=== PATIENT | female | born 1980 | race Caucasian/White ===

== ENCOUNTER → 2020-10-06 | Outpatient (CLI) | payer BC ==
[2020-10-06 16:18] LABS: Basophils # (A) 0.1 k/uL (0-0.2); Basophils % (A) 2 %; Eosinophils # (A) 0.1 k/uL (0-0.7); Eosinophils % (A) 2 %; HGB 11.2 gm/dL (11.4-16.0); Hypochromasia Slight; Lymphocytes # (A) 1.8 k/uL (1.0-4.8); Lymphocytes % (A) 32 %; MCH 27.5 pg (25.0-35.0); MCV 83.2 fL (80.0-100.0); Mean Platelet Volume 8.9; Monocytes # (A) 0.5 k/uL (0-1.0); Monocytes % (A) 9 %; Neutrophils % (A) 53 %; Platelet Count 299 k/uL (150-450); RBC 4.09 m/uL (3.80-5.40); RDW 15.2 % (11.5-15.5); WBC 5.7 k/uL (3.8-10.6)
== END | disposition home or self-care (01) ==
LOC: LABPAT 16:06
PROVIDERS: ATTEND Obstetrics & Gynecology
DX: Z01.812 Encounter for preprocedural laboratory examination (principal); N92.0 Excessive and frequent menstruation with regular cycle; N94.6 Dysmenorrhea, unspecified
CPT/HCPCS: 36415; 85025

== ENCOUNTER 2020-10-10 07:25 | Day surgery (SDC) | payer BC ==
[2020-10-06 09:51] VITALS: BMI 25.8
--- NOTE | 2020-10-06 20:36 | HP ---
HISTORY AND PHYSICAL REASON FOR ADMISSION: Surgery scheduled on October 10. HISTORY OF PRESENT ILLNESS: The patient is a 39-year-old, 3, para 3-0-0-3, who presents to the office with complaints of significantly heavy bleeding with clots and also significant cramping. This has been increasing over a number of years and use of Anaprox and Lysteda have been ineffective. Her does have a vasectomy and she is not interested in hormonal manipulation or contraceptive choices to manage the problem and has specifically requested diagnostic hysteroscopy with NovaSure endometrial ablation. PAST MEDICAL HISTORY: None. PAST SURGICAL HISTORY: Significant for breast augmentation surgery and tummy tuck both in 2013. There were no anesthetic concerns. OBSTETRICAL HISTORY: 3, para 3-0-0-3 with 3 term vaginal deliveries without complications. Method of contraception is vasectomy. GYNECOLOGIC HISTORY: Unremarkable with no history of any infections to include STDs. FAMILY HISTORY: Noncontributory. SOCIAL HISTORY: The patient is and works as an investment sales assistant in [employer]. She is a nonsmoker. Reports occasional alcohol. No other social concerns. CURRENT MEDICATIONS: Include Lysteda 650 mg 2 tablets 2 times a day as needed during menses. Additionally, she has used Anaprox DS every 8 hours as needed for dysmenorrhea. REVIEW OF SYSTEMS: Confined to history of present illness. PHYSICAL EXAMINATION: Vital signs are stable. The patient is afebrile. In GENERAL, this is a well-developed, well-nourished white female in no acute distress. Her HEART has a regular rhythm and rate without murmur. Her LUNGS are clear to auscultation bilaterally in all tam. Her ABDOMEN is nondistended, has normoactive bowel sounds, soft, nontender, without any palpable masses, hepatosplenomegaly, or hernias. Her EXTREMITIES without any cyanosis, clubbing, or edema and nontender to palpation bilaterally. PELVIC examination demonstrates normal external genitalia and BUS with normal vaginal mucosa and cervix. There is no cervical motion tenderness. Uterus is 4-5 weeks in size, mid plane, mobile, nontender, normal in shape. An endometrial biopsy performed during the examination demonstrated benign findings. Sounded to approximately 8 cm. The adnexa are normal, nontender without mass bilaterally. ASSESSMENT AND PLAN: Menorrhagia. Dysmenorrhea is almost certainly secondary to degree of heavy bleeding. After discussion of options for treatment, the patient has again expressed desire to proceed with diagnostic hysteroscopy with NovaSure endometrial ablation. The risks and complications of the procedure have been thoroughly discussed including risk for bleeding, bleeding requiring transfusion, infection, injury to local structures to specifically include uterine perforation, Asherman syndrome, and potential hematometra. She understood all this and has agreed to proceed. MMODL / IJN: [id number] /
[~2020-10-10 07:25] MED LIST: Pre Op ABX Message 1 EACH MISC MISCELLANE ONE
[2020-10-10] MEDS: LACTATED RINGERS 1,000 ML IV SCH ×3 (07:57→10:45)
[2020-10-10] MEDS ORDERED: ONDANSETRON 4 MG/2 ML VIAL ONE (07:59)
[2020-10-10] MEDS ORDERED: LIDOCAINE 1% (10MG/ML) FOR IV START INTRADERMA ONE (08:01)
[2020-10-10] MEDS ORDERED: DEXAMETHASONE SOD PHOSPHATE 4 MG/ML 1 ML VIAL IVP ONE (08:02)
[2020-10-10] MEDS ORDERED: ONDANSETRON 4 MG/2 ML VIAL IVP ONE (08:02)
[2020-10-10] MEDS ORDERED: SCOPOLAMINE 1.5MG/72HR PATCH TRANSDERM ONE (08:03)
[2020-10-10] MEDS ORDERED: PROPOFOL 10 MG/ML 20 ML VIAL IV ONE (08:35)
[2020-10-10] MEDS ORDERED: KETOROLAC 15 MG/ML 1 ML VIAL ONE (08:35)
[2020-10-10] MEDS ORDERED: fentaNYL (PF) 50 MCG/ML 2 ML AMP ONE (08:35)
[2020-10-10] MEDS ORDERED: LIDOCAINE 1% INJ 10MG/ML (20 ML MDV) ONE (08:35)
[2020-10-10] MEDS ORDERED: MIDAZOLAM 2 MG/2 ML VIAL ONE (08:35)
[2020-10-10] MEDS ORDERED: SIMETHICONE 80 MG CHEWABLE PO PRN (09:12)
[2020-10-10] MEDS ORDERED: diphenhydrAMINE 50 MG/ML 1 ML VIAL IVP PRN (09:12)
[2020-10-10] MEDS ORDERED: Acetaminophen-Codeine 300-30mg TAB PO PRN ×2 (09:12)
[2020-10-10] MEDS ORDERED: KETOROLAC 15 MG/ML 1 ML VIAL IVP PRN (09:12)
[2020-10-10] MEDS ORDERED: ONDANSETRON 4 MG/2 ML VIAL IVP PRN (09:12)
[2020-10-10] MEDS ORDERED: METOCLOPRAMIDE 5 MG/ML 2 ML VIAL IVP PRN (09:12)
[2020-10-10] MEDS ORDERED: IBUPROFEN 600 MG TAB PO PRN (09:12)
[2020-10-10] MEDS ORDERED: LACTATED RINGERS 1,000 ML IV SCH (09:15)
[2020-10-10 09:19] VITALS: TEMP 96.8
--- NOTE | 2020-10-10 09:21 | P.OP ---
Date of Procedure: 10/10/20 Preoperative Diagnosis: #1. Menorrhagia #2. Dysmenorrhea Postoperative Diagnosis: Same Procedure(s) Performed: #1. Diagnostic hysteroscopy #2. NovaSure endometrial ablation Anesthesia: other (Gen. by LMA) Surgeon: Luiz Poole Estimated Blood Loss (ml): 2 Urine output (ml): 50 Pathology: none sent Condition: stable Disposition: PACU Operative Findings: Preoperative pelvic examination demonstrated a roughly 6 week midplane to slightly retroverted mobile normal shaped uterus with normal adnexa bilaterally. Intraoperatively, the uterus sounded to 10 cm while the cervix sounded to 4 cm. Using the hysteroscope, the bilateral tubal ostia were seen and there was only scattered areas of shaggy endometrium with no other evidence of any kind of pathology. The settings for the NovaSure tool were a length of 6.0 cm, a width of 4.8 cm for a total power of 158 W. After total run time of 81 seconds, the base unit read "procedure complete." The postprocedural results using the hysteroscope appeared to be excellent. The patient, should she require hysterectomy in the future, would best be served with a da Fercho approach, she is a borderline candidate for vaginal approach at best. Description of Procedure: The patient was prepped and draped in usual fashion after general anesthesia was administered by the anesthesiologist. A weighted speculum was placed in the bladder draining approximately 50 mL of clear elysia urine. The anterior lip of the cervix was grasped with a single-tooth tenaculum and uterus sounded to 10 cm with a cervical length of 4 cm. Serial dilation was carried out to admit the diagnostic hysteroscope which was placed into the endometrial cavity and the cavity distended with normal saline. The findings are as noted above with no evidence of any pathology and only occasional shaggy endometrium noted. The bilateral tubal ostia were seen. After adequate hysteroscopy been performed, the scope was set aside and the NovaSure tool placed into the cavity with settings of a length of 6.0 cm, a width of 4.8 cm for total power 158 W. The 2 was opened and seated well. The cavity check was attempted and passed without difficulty. The tool was enabled and the run was started. After a total run time of 81 seconds, the base unit read "procedure complete." The 2 was closed, removed, and discarded and the diagnostic scope replaced into the endometrial cavity. The findings appeared to be excellent. The scope was then removed and discarded and all instrumentation removed. There was no ongoing bleeding either from the cervix or from the tenaculum site. Estimated blood loss for the entire case was approximately 2 mL. There were no complications. All sponge, instrument, and needle counts were correct. The patient tolerated the procedure well and proceeded to the recovery room in stable condition.
[2020-10-10 09:27] VITALS: RESP 16
[2020-10-10 10:24] VITALS: BP 1101/64; PULSE 64
[2020-10-10] MEDS ORDERED: METOCLOPRAMIDE 5 MG/ML 2 ML VIAL IVP ONE (10:30)
== END 2020-10-10 11:03 | disposition home or self-care (01) ==
LOC: OR 07:25
PROVIDERS: ATTEND Obstetrics & Gynecology
DX: N92.0 Excessive and frequent menstruation with regular cycle (principal); N94.6 Dysmenorrhea, unspecified
CPT/HCPCS: 81025; 58563; J2250; J1100; J2765; J2405; J2001; J3010; J1885; J2704

== ENCOUNTER → 2022-02-16 | Outpatient (CLI) | payer BC ==
--- NOTE | 2022-02-19 11:40 | MM ---
Reason for Exam: Hx of breast augmentation, asymptomatic. Baseline mammogram. Patient History: Menarche at age 10. First Full-Term at age 24. 2013, Bilateral Implants. Last menstrual period: 01/20/2022 Risk Values: Dina 5 year model risk: 0.6%. NCI Lifetime model risk: 9.8%. Prior Study Comparison: Patient's first Mammogram. Tissue Density: There are scattered fibroglandular densities. Findings: Analyzed By CAD. Pattern appears symmetrical. Bilateral implants are evident. No suspicious groups of microcalcifications, spiculated or lobular masses, architectural distortion or other secondary signs of malignancy are mammographically apparent. Overall Assessment: Benign, BI-RAD 2 Management: Screening Mammogram of both breasts in 1 year. A negative mammogram report should not preclude additional follow up of suspicious palpable abnormalities. Patient should continue monthly self breast exam. A clinical breast exam by your physician is recommended on an annual basis and results should be correlated with mammographic findings. Electronically signed and approved by: Priyank Rodriguez D.O. Radiologis
== END | disposition home or self-care (01) ==
LOC: RADMAMWWP 16:22
PROVIDERS: ATTEND Obstetrics & Gynecology
DX: Z12.31 Encounter for screening mammogram for malignant neoplasm of breast (principal)
CPT/HCPCS: 77063; 77067

== ENCOUNTER → 2023-05-07 | Outpatient (CLI) | payer BC ==
--- NOTE | 2023-05-08 19:37 | MM ---
Reason for Exam: Screening (asymptomatic). Last mammogram was performed 1 year(s) and 3 month(s) ago. Patient History: Menarche at age 10. First Full-Term at age 24. Patient has history of breast feeding. 2013, Bilateral Implants. Last menstrual period: 04/07/2023 Risk Values: Dina 5 year model risk: 0.6%. NCI Lifetime model risk: 9.7%. Prior Study Comparison: 02/16/2022 Bilateral MG 3D screen mammo imp/cad., [facility]. Tissue Density: The breast tissue is heterogeneously dense. This may lower the sensitivity of mammography. Findings: Analyzed By CAD. Bilateral subpectoral silicone implants. There is no suspicious group of microcalcifications or new suspicious mass in either breast. Overall Assessment: Negative, BI-RAD 1 Management: Screening Mammogram of both breasts in 1 year. . Patient should continue monthly self-breast exams. A clinical breast exam by your physician is recommended on an annual basis. This exam should not preclude additional follow-up of suspicious palpable abnormalities. Note on Dina scores and lifetime risk: 1. A Dina score greater than 3% is considered moderate risk. If this is the case, consider specialist referral to assess eligibility for a risk reducing agent. 2. If overall lifetime risk for the development of breast cancer is 20% or higher, the patient may qualify for future screening with alternating mammogram and breast MRI. Electronically signed and approved by: Sandor Bui M.D. Radiologist
== END | disposition home or self-care (01) ==
LOC: RADMAMWWP 06:49
PROVIDERS: ATTEND Family Medicine
DX: Z12.31 Encounter for screening mammogram for malignant neoplasm of breast (principal); Z98.82 Breast implant status
CPT/HCPCS: 77063; 77067

== ENCOUNTER → 2024-08-06 | Outpatient (CLI) | payer BC ==
--- NOTE | 2024-08-06 08:20 | MM ---
Reason for Exam: Screening (asymptomatic). Last mammogram was performed 1 year(s) and 3 month(s) ago. Patient History: Menarche at age 10. First Full-Term at age 24. Patient has history of breast feeding. 2014, Bilateral Implants. Risk Values: Dina 5 year model risk: 0.7%. NCI Lifetime model risk: 9.6%. Prior Study Comparison: 02/16/2022 Bilateral MG 3D screen mammo imp/cad., [facility]. 05/07/2023 Bilateral MG 3D screen mammo imp/cad., [facility]. Tissue Density: The breasts are heterogeneously dense, which may obscure small masses. Findings: Analyzed By CAD. There is no suspicious group of microcalcifications or new suspicious mass in either breast. Bilateral breast implants are in place. Overall Assessment: Benign, BI-RAD 2 Management: Screening Mammogram of both breasts in 1 year. . Patient should continue monthly self-breast exams. A clinical breast exam by your physician is recommended on an annual basis. This exam should not preclude additional follow-up of suspicious palpable abnormalities. Note on Dina scores and lifetime risk: 1. A Dina score greater than 3% is considered moderate risk. If this is the case, consider specialist referral to assess eligibility for a risk reducing agent. 2. If overall lifetime risk for the development of breast cancer is 20% or higher, the patient may qualify for future screening with alternating mammogram and breast MRI. [facility], , 08/06/2024 8:17 AM. Electronically signed and approved by: Jairon Arroyo M.D. Radiologis
== END | disposition home or self-care (01) ==
LOC: RADMAMWWP 07:32
PROVIDERS: ATTEND Family Medicine
DX: Z12.31 Encounter for screening mammogram for malignant neoplasm of breast (principal); R92.333 Mammographic heterogeneous density, bilateral breasts; Z98.82 Breast implant status
CPT/HCPCS: 77063; 77067